=== PATIENT | male | born 1980 | race Caucasian/White ===

== ENCOUNTER → 2017-11-18 10:23 | Day surgery (SDC) | payer OTHER ==
[~2017-11-18 10:23] MED LIST: Buffered Lidocaine 0.9% SYRIN* 5 ML/SYR SYRINGE INTRADERM ONE; Buffered Lidocaine 0.9% SYRIN* 5 ML/SYR SYRINGE ONE; Bupivacaine 0.25% SDV* 30 ML ONE; Dexamethasone IV* 4 MG/ML 1 ML (4 MG) ONE; HYDROcodone/ACETAMIN 5-325 MG* 1 TAB ONE; Ketorolac INJ* 30 MG/ML 1 ML VIAL ONE; Lidocaine 1% MPF wEPI 200,000* 30 ML SDV ONE; Lidocaine 2% PF * 5 ML VIAL ONE; Naloxone* 0.4 MG/ML 1 ML VIAL IV PRN; Ondansetron INJ* 2 MG/ML VIAL IV PRN; Ondansetron INJ* 2 MG/ML VIAL ONE; Propofol* 10 MG/ML 20 ML BTL IV PUSH ONE; Sodium Citrate/Citric Acid* 15 ML UDC ONE; Sodium Citrate/Citric Acid* 15 ML UDC PO ONE; ceFAZolin 2 GM PREMIX (*) 2 GM/50 ML BAG IVPB ONE; fentaNYL* 50 MCG/ML 2 ML VIAL (100 MCG VIAL) ONE; fentaNYL* 50 MCG/ML 5 ML VIAL (250 MCG VIAL) ONE
[2017-11-18] MEDS: fentaNYL* 50 MCG/ML 2 ML VIAL (100 MCG VIAL) IV PRN ×3 (14:57→15:14)
[2017-11-18 15:33] VITALS: BP 102/89
--- NOTE | 2017-11-20 12:58 | OP ---
DATE OF OPERATION: 11/18/17 - [facility] DATE OF : 82 SURGEON: Rick Richards MD CUT OFF MAN: ANKITA Olivier. An certified physician's assistant was needed for the entirety of the procedure to aid in positioning of the arm and retraction. ANESTHESIOLOGIST: Dr. Tenorio. ANESTHESIA: General. PRE-OP DIAGNOSES: 1. Right triangular fibrocartilage complex repair with ulnar carpal and ulnar collateral ligament tear. 2. Traumatic disruption of the trapezio-triquetral joint. POST-OP DIAGNOSES: 1. Right triangular fibrocartilage complex repair with ulnar carpal and ulnar collateral ligament tear. 2. Traumatic disruption of the trapezio-triquetral joint. 3. Disruption of the distal flexor carpi ulnaris tendon. PROCEDURE PERFORMED: 1. Right wrist arthroscopy. 2. Right wrist arthroscopic TFCC debridement. 3. Right pisiform excision. 4. Right TFCC repair in the form of ulnar carpal ligament repair and ulnar collateral ligament repair. 5. Debridement of distal FCU tendon disruption or rupture. INDICATIONS: Ton is 36, we have been trying to nurse along the ulnar side of the wrist ever since an injury to the wrist back on 07/18/17, when he fell and a 40- pound box bent the wrist very awkwardly while at work. Since then, we have never been able to get relief of the ulnar-sided wrist pain despite injections and some nonoperative treatment. We talked about risks and benefits and the proposed surgery. He had wanted to proceed. ESTIMATED BLOOD LOSS: 2 mL. COMPLICATIONS: None. FINDINGS: The ulnar collateral ligament was disrupted off of the triquetrum. The ulnocarpal ligaments were disrupted. DESCRIPTION OF PROCEDURE: Ton was seen in the preoperative holding area. The correct site and side of the procedure were identified. We came back to the operating room. The arm was prepped and draped in the usual fashion. A time -out was performed. I began with placing the arm in the Acumed traction tower and appropriate traction was placed. The arm was exsanguinated with the Esmarch and the tourniquet inflated to 250 mmHg. I developed a 3/4 portal in standard fashion with the #11 blade and mosquito and the blunt trocar. The camera was inserted there, the arthroscopy was begun. Radially, everything looked good. As I came ulnar, there was no central or radial-sided TFCC tears. The pre-foveal recess was identified. There was disruption and very thinning and splitting of the ulnocarpal ligaments volarly. I did develop a 6 arch portal and introduced the shaver and debrided back the disruption of the ulnocarpal ligament with the shaver. I then developed midcarpal portals, both radial and ulnar side midcarpal portals. I examined the scapholunate and lunotriquetral articulations, these both looked well apposed and stable. At this point, I decided there was nothing further that I could repair arthroscopically. We left the arm out of the traction tower and prepared for the open portion of procedure. I made a Flavia type incision over the ulnar side of the wrist joint. Full-thickness flaps were raised off the fascia. The pisiform is identified, it was ellipsed out from the remaining fibers of the FCU. The pisiform was circumferentially released from the remaining fibers of the FCU tendon and excised. Distally, the FCU tendon had largely been ruptured off of its insertion on to the base of the 5th metacarpal. The scar tissue adhesions had developed there are debrided back until only the muscular attachments of the FCU tendon remained or the hypothenar muscle originates off the tendon. Once I had the pisiform excised, I was able to dissect down to the ulnocarpal joint and expose the ulnar collateral ligament. This was frankly peeled off and detached from the ulnar side of the triquetrum and the carpus. I went ahead and placed a Micro Mitek suture and went ahead and tried to reapproximate the ulnar collateral ligament back to the triquetrum; however, the 4-0 Ethibond suture was not strong enough, and so I went ahead and placed a mini Mitek suture and then I was able to use a 2-0 suture of that to repair the ulnocarpal ligament back to the triquetrum. I had used a curette and a rongeur to go ahead and create some bleeding bone and prepare the site for healing. At this point, I took 4-0 Ethibond suture and placed multiple nretsp-ub-qsyxw sutures to complete the repair of the ulnar collateral ligament. I then came more proximally and the split in the ulnar carpal ligament was repaired using three xogubh-sq-lmxpo 4-0 Ethibond sutures. At this point, the distal FCU tendon rupture had been debrided. The repair of the ulnar collateral ligament and the ulnar carpal ligaments was complete. Everything was looking good and stable. I went ahead and irrigated out the wound. The split in the remaining FCU tendon was closed up with a couple of 4-0 Ethibond sutures. Skin was closed with 4-0 nylon sutures. 0.25% Marcaine was infiltrated into the operative area. The wounds are dressed with Xeroform, 4x4, sterile Webril and a sugar-tong splint with the wrist in neutral flexion. Slight ulnar deviation was applied. Tourniquet was deflated and the hand pinked up immediately. He was woken up and taken to the recovery room in stable condition. [id number]/[facility] #: [id number] CASSIDY
== END | disposition home or self-care (01) ==
LOC: OR 10:23
PROVIDERS: ATTEND Orthopaedic Surgery Hand Surgery
DX: S63.591D Other specified sprain of right wrist, subsequent encounter (principal); S63.31 Traumatic rupture of collateral ligament of wrist; W19.XXXD Unspecified fall, subsequent encounter; F41.8 Other specified anxiety disorders; Y92.89 Other specified places as the place of occurrence of the external cause; Z87.891 Personal history of nicotine dependence; K21.9 Gastro-esophageal reflux disease without esophagitis
CPT/HCPCS: 88304; 88311; A9270-GY; C1713; J0690; J1100; J1885; J2001; J2405; J2704; J3010

== ENCOUNTER 2018-03-19 23:02 | Emergency (ER) | payer OTHER ==
[2018-03-19 23:08] VITALS: BP 124/76
--- OUTSIDE RECORDS SUMMARY | 2018-03-19 23:17 | XMS REPORT ---
:1980 External Reference #:[id number] Author Organization [facility] Address [address] [address] Phone [phone] Care Team Providers Name Role Phone Anders Victoria MD Primary Care Physician Unavailable Payers Type Date Identification Numbers Payment Provider Subscriber Commercial Policy Number: [id number] [employer] Ton Contreras Group Number: [id number] [address] PayID: [id number] [place] [address] Medigap Part B Effective: 2011 Policy Number: BS Facets Jessy Contreras [id number] Expires: 2016 PayID: [id number] [address] [address] [place] [address] Medigap Part B Expires: 2011 Policy Number: BS Juan Francisco Contreras [id number] PayID: [id number] [address] [address] [place] [address] Workers Effective: Policy Number: Vega Ton [employer] Compensation 2017 [id number] Patsy Contreras Onset: 2017 Group Name: (Q) [phone] [address] PayID: TORRES Thomas [id number] Problems Date Description Provider Status Onset: 07/30/2017 Sprain of wrist and/or hand Rick Richards MD Active Family History Date Family Member(s) Problem(s) Comments General No Current Problems Social History Type Date Description Comments Lives With Spouse Occupation [employer] ETOH Use Occasionally consumes alcohol Smoking Patient is a former smoker Exercise Type/Frequency Exercises regularly Allergies, Adverse Reactions, Alerts Date Description Reaction Status Severity Comments 05/09/2011 Benadryl hallucinations active Moderate 11/01/2016 NKDA inactive Medications Medication Date Status Form Strength Qnty SIG Indications Ordering Provider Ibuprofen Active prn pain Unknown /0000 Hydrocodone-Ac 11/17 Hx Tablets 5-325mg 60tab 1 or 2 tabs by Maryse etamin s mouth every 6-8 Cain, - hours as needed M.D. 11/29 for pain No Active 11/01 Hx Unknown Medications /2015 - 11/17 Ibuprofen 03/17 Hx Tablets 600mg 90tab tid s Endo, - M.D. 07/12 Gabapentin 03/17 Hx Capsules 100mg 240ca 1 po qhs to ps start and march Endo, - increase as M.D. 07/12 tolerated to po qhs then 1 po qam and 2 po hs, gradually up to 3 tid prn pain Tramadol HCL 01/07 Hx Tablets 50mg 120ta 100 MG bid prn bs Endo, - M.D. 07/12 Methotrexate 01/07 Hx Tablets 2.5mg 30tab 6 tabs each s Saturday Endo, - M.D. 03/17 Folic Acid 01/07 Hx Tablets 1mg 90tab 1 po qd s Endo, - M.D. 07/12 Enbrel PFS 08/29 Hx Solution 50mg/ml 4unit 1 s subcutaneously Endo, - once weekly M.D. 07/12 Nabumetone 08/14 Hx Tablets 750mg 60tab 1 po bid s Endo, - M.D. 03/17 Indomethacin 05/09 Hx Capsules 25mg 120ca 2 po bid ps Endo, - M.D. 08/14 Amitriptyline Hx Tablets 50mg 30tab 1 po qhs Unknown HCL / s - 03/17 Prilosec Hx Capsules 40mg 30cap 1 po bid Unknown /0000 DR brito - 07/12 Sucralfate Hx Tablets 1gm 90tab take 1 qid Unknown /0000 s - 07/12 Vital Signs Date Vital Result Comment 02/18/2018 Height 74.5 inches 6'2.50" Heart Rate 68 /min BP Systolic 120 mmHg BP Diastolic 62 mmHg Respiratory Rate 12 /min Body Temperature 96.9 F Pain Level 2 01/31/2018 Height 74.5 inches 6'2.50" Heart Rate 67 /min BP Systolic 102 mmHg BP Diastolic 62 mmHg Respiratory Rate 16 /min Body Temperature 97.0 F Pain Level 2 01/08/2018 Height 74.5 inches 6'2.50" Weight 220.00 lb Heart Rate 64 /min BP Systolic Sitting 112 mmHg LA lg cuff BP Diastolic Sitting 68 mmHg LA lg cuff Pain Level 0 BMI (Body Mass Index) 27.9 kg/m2 12/20/2017 Height 74.5 inches 6'2.50" Weight 215.00 lb per pt Heart Rate 62 /min Respiratory Rate 16 /min Pain Level 0 BMI (Body Mass Index) 27.2 kg/m2 11/29/2017 Height 74.5 inches 6'2.50" Weight 219.00 lb Heart Rate 77 /min Respiratory Rate 14 /min Body Temperature 97.3 F Pain Level 3 BMI (Body Mass Index) 27.7 kg/m2 11/12/2017 Height 74.5 inches 6'2.50" Weight 219.00 lb Heart Rate 61 /min BP Systolic 116 mmHg BP Diastolic 65 mmHg Body Temperature 96.9 F BMI (Body Mass Index) 27.7 kg/m2 09/20/2017 Height 74 inches 6'2" Weight 210.00 lb BP Systolic 108 mmHg BP Diastolic 66 mmHg Respiratory Rate 14 /min Body Temperature 98.3 F Pain Level 4 BMI (Body Mass Index) 27.0 kg/m2 08/27/2017 Height 74 inches 6'2" Weight 210.00 lb Heart Rate 76 /min BP Systolic 124 mmHg BP Diastolic 82 mmHg Body Temperature 98.2 F Pain Level 3 BMI (Body Mass Index) 27.0 kg/m2 07/30/2017 Height 74 inches 6'2" Weight 210.00 lb Heart Rate 70 /min BP Systolic 127 mmHg BP Diastolic 77 mmHg Respiratory Rate 16 /min BMI (Body Mass Index) 27.0 kg/m2 11/22/2016 Height 74 inches 6'2" Weight 235.00 lb Respiratory Rate 19 /min Pain Level 3 BMI (Body Mass Index) 30.2 kg/m2 11/01/2016 Height 74 inches 6'2" Weight 235.00 lb Respiratory Rate 21 /min Pain Level 4 BMI (Body Mass Index) 30.2 kg/m2 03/17/2012 Height 74 inches 6'2" Weight 226.00 lb Heart Rate 78 /min BP Systolic Sitting 120 mmHg BP Diastolic Sitting 71 mmHg BMI (Body Mass Index) 29.0 kg/m2 01/07/2012 Height 74 inches 6'2" Weight 227.00 lb Heart Rate 80 /min BP Systolic Sitting 126 mmHg BP Diastolic Sitting 70 mmHg BMI (Body Mass Index) 29.1 kg/m2 10/29/2011 Height 74 inches 6'2" Weight 230.00 lb Heart Rate 83 /min BP Systolic Sitting 127 mmHg BP Diastolic Sitting 71 mmHg BMI (Body Mass Index) 29.5 kg/m2 09/14/2011 Height 74 inches 6'2" Weight 210.00 lb Heart Rate 72 /min BP Systolic Sitting 122 mmHg BP Diastolic Sitting 78 mmHg BMI (Body Mass Index) 27.0 kg/m2 08/14/2011 Height 74 inches 6'2" Weight 212.00 lb BP Systolic 120 mmHg BP Diastolic 80 mmHg BMI (Body Mass Index) 27.2 kg/m2 05/09/2011 Height 74 inches 6'2" Weight 214.00 lb Heart Rate 74 /min BP Systolic 130 mmHg BP Diastolic 74 mmHg BMI (Body Mass Index) 27.5 kg/m2 Results Test Date Test Result H/L Range Note Laboratory test 11/18/2017 Surgical Pathology SEE RESULT BELOW 1 finding Xray 11/23/2016 Elbow Left 3+VWS <pending> 1 SEE RESULT BELOW Name: TON CONTRERAS II : [address]: Rick Richards MD Acct: [id number] Unit: [id number] AGE: 36 Location: OR Re11/18/17 SEX: M Status: REG SDC SPEC: [id number] NETTIE: 11/18/17-1406 [facility] [address]: Rick Richards MD REQ: [id number] RECD: 11/18/17 STATUS: SOUT _ ORDERED: Decal, LEVEL 3 FINAL DIAGNOSIS Bone and cartilage, right wrist, arthroplasty: -- Severe degenerative osteoarthritic changes. PRE-OPERATIVE DIAGNOSIS Other specified sprain of right wrist GROSS DESCRIPTION The specimen is received in formalin labeled, Pisiform Right Wrist, and consists of a 1.7 x 1.1 x 1.1 cm crum-pink irregular bone fragment with scant adherent crum-pink soft tissue. Punch Operator sections, one cassette following decalcification. MICROSCOPIC DESCRIPTION . Signed (signature on file) Jairo Martinez MD 1524 END OF REPORT * ML=Testing performed at Main Lab DEPARTMENT OF PATHOLOGY, [address] [place] [address] Jairo Martinez M.D. Director [facility] # [id number] Procedures Date CPT Code Description Status 01/08/2018 24626 Long Arm Splint Application Completed 12/20/2017 71291 Long Arm Cast Application Completed 11/29/201772343 Long Arm Cast Application Completed 11/18/2017 10506 Carpectomy One Bone Completed 11/18/2017 44787 Carpectomy One Bone Completed 11/18/2017 16621 Arthrotomy Distal Radioulnar JT W/Repair Triangular Completed Cartilage 11/18/2017 10835 Arthrotomy Distal Radioulnar JT W/Repair Triangular Completed Cartilage 11/18/2017 95376 Arthroscopy Wrist Excision/Repair Triang Completed Fibrocartilage/Debride 11/18/2017 21580 Carpectomy One Bone Completed 11/18/2017 91128 Arthrotomy Distal Radioulnar JT W/Repair Triangular Completed Cartilage Encounters Type Date Location Provider CPT E/M Dx Office Visit 09/20/2017 [place] [address] S63.591D 9:30a Of [facility] Office Visit 08/27/2017 [place] [address] S63.591D 2:45p [facility] Office Visit 07/30/2017 [place] [address] S63.591A 2:45p Of [facility]AJose Office Visit 11/22/2016 [facility] Le[facility] Crawford 15742 S52.135D 3:00p Of Suman CALDERÓN M25.522 Office Visit 11/01/2016 2:30p [facility] Of Leopoldo Cespedes 42348 M25.522 Suman Crawford MD Office Visit 04/03/2012 8:15a [facility] Of Ian Schroeder 34754 727.04 Suman Soares Office Visit 03/17/2012 9:00a [facility] A[facility] 03245 720.0 Of Shruthi Soares 721.3 338.4 V58.69 Office Visit 01/07/2012 9:40a [facility] Services [facility] Ayon M.D. 54624 720.0 Of [facility] V58.69 Office Visit 10/29/2011 3:40p Rhe[facility]ology Services Ascencion Ayon M.D. 73926 720.0 Of [facility] V58.69 Office Visit 09/14/2011 9:00a [facility]ology Services Of Nurse Visit 18220 720.0 [facility] V58.69 Office Visit 08/14/2011 1:40p [facility] Services [facility] Ayon M.D. 89640 720.0 Of [facility] V58.69 535.50 Office Visit 05/09/2011 2:40p [facility] Services [facility] A[facility] 41810 715.89 Of Shruthi Soares 721.90 Plan of Care Future Appointment(s):04/02/2018 10:15 am - Rick Richards MD at [facility]
[2018-03-19] MEDS ORDERED: Lidocaine 2% VISCOUS* 15 ML UDC PO ONE (23:35)
--- NOTE | 2018-03-19 23:39 | ED ---
Respiratory - HPI Summary HPI Summary: Complains of sore throat, left ear pain starting yesterday. Denies fever, cough , RECINOS, facial pressure, nasal discharge, rash, CP, SOB, N/V/D, abdominal pain, change in urine or BM. Medical history is none. Pain with swallowing, but able to tolerate fluids - History of Current Complaint Chief Complaint: EDThroatPain Stated Complaint: SORE THROAT/LT EAR PAIN Time Seen by Provider: 03/19/18 23:29 Hx Obtained From: Patient Onset/Duration: Gradual Onset Timing: Constant Initial Severity: Moderate Current Severity: Moderate Pain Intensity: 5 Sputum Amount: None - Allergy/Home Medications Allergies/Adverse Reactions: Allergies Allergy/AdvReac Type Severity Reaction Status Date / Time diphenhydramine Allergy Hives Verified 03/19/18 23:05 [From Benadryl] PMH/Surg Hx/FS Hx/Imm Hx Endocrine/Hematology History: Denies: Hx Diabetes Cardiovascular History: Denies: Hx Hypertension, Hx Pacemaker/ICD History: Denies: Hx Renal Disease Sensory History: Denies: Hx Contacts or Glasses, Hx Hearing Aid Opthamlomology History: Denies: Hx Contacts or Glasses Psychiatric History: Reports: Hx Anxiety, Hx Panic Disorder - Cancer History Hx Chemotherapy: No - Surgical History Surgery Procedure, Year, and Place: ORAL SURGERY had wisdom teeth and a couple others removed Hx Anesthesia Reactions: No Infectious Disease History: No Infectious Disease History: Reports: Hx Hepatitis Denies: Hx Clostridium Difficile, Hx Human Immunodeficiency Virus (HIV), Hx of Known/Suspected MRSA, Hx Shingles, Hx Tuberculosis, Hx Known/Suspected VRE, Hx Known/Suspected VRSA, History Other Infectious Disease, Traveled Outside the [place] in Last 30 Days - Family History Known Family History: Negative: Cardiac Disease, Hypertension, Diabetes - Social History Alcohol Use: Rare Substance Use Type: Reports: Marijuana Substance Use Comment - Amount & Last Used: occassionally Smoking Status (MU): Former Smoker Amount Used/How Often: smoked for 8 years 1.5ppd Review of Systems Constitutional: Negative Eyes: Negative Positive: Sore Throat, Ear Ache Cardiovascular: Negative Respiratory: Negative Gastrointestinal: Negative Genitourinary: Negative Musculoskeletal: Negative Skin: Negative Neurological: Negative Psychological: Normal All Other Systems Reviewed And Are Negative: Yes Physical Exam Triage Information Reviewed: Yes Vital Signs On Initial Exam: Initial Vitals Temp Pulse Resp BP Pulse Ox 97.4 F 67 20 124/76 98 03/19/18 23:04 03/19/18 23:04 03/19/18 23:04 03/19/18 23:04 03/19/18 23:04 Vital Signs Reviewed: Yes Appearance: Positive: Well-Appearing Skin: Positive: Warm Head/Face: Positive: Normal Head/Face Inspection Eyes: Positive: Normal ENT: Positive: Pharyngeal erythema, TMs normal, Tonsillar exudate, Uvula midline. Negative: Trismus, Muffled voice, Hoarse voice, Sinus tenderness Neck: Positive: Supple Respiratory/Lung Sounds: Positive: Clear to Auscultation Cardiovascular: Positive: Normal Abdomen Description: Positive: Nontender Musculoskeletal: Positive: Normal Neurological: Positive: Normal Psychiatric: Positive: Normal AVPU Assessment: Alert - Nicholson Coma Scale Best Eye Response: 4 - Spontaneous Best Motor Response: 6 - Obeys Commands Best Verbal Response: 5 - Oriented Coma Scale Total: 15 Diagnostics - Vital Signs Vital Signs Temp Pulse Resp BP Pulse Ox 03/19/18 23:04 97.4 F 67 20 124/76 98 - Laboratory Lab Statement: Any lab studies that have been ordered have been reviewed, and results considered in the medical decision making process. Disposition - Course Course Of Treatment: Positives for strep throat. Amoxicillin and lidocaine - Diagnoses Provider Diagnoses: Strep pharyngitis Discharge - Sign-Out/Discharge Documenting (check all that apply): Discharge/Admit/Transfer - Discharge Plan Condition: Stable Disposition: HOME Patient Education Materials: Strep Throat (ED) Referrals: Anders Victoria MD [Primary Care Provider] - Additional Instructions: Follow-up with primary care. Return to the ED for any new or worsening symptoms - Billing Disposition and Condition Condition: STABLE Disposition: HOME
[2018-03-20] MEDS ORDERED: Amoxicillin PO (*) 500 MG CAP PO ONE (00:29)
== END 2018-03-20 00:48 | disposition home or self-care (01) ==
LOC: ED 23:02
DX: J02.0 Streptococcal pharyngitis (principal); Z88.8 Allergy status to other drugs, medicaments and biological substances; F41.0 Panic disorder [episodic paroxysmal anxiety]; Z87.891 Personal history of nicotine dependence
CPT/HCPCS: 87651; 99282; A9270-GY

== ENCOUNTER 2018-04-24 08:44 | Day surgery (SDC) | payer OTHER ==
[~2018-04-24 08:44] MED LIST changes: -Buffered Lidocaine 0.9% SYRIN* 5 ML/SYR SYRINGE ONE; -Bupivacaine 0.25% SDV* 30 ML ONE; -Dexamethasone IV* 4 MG/ML 1 ML (4 MG) ONE; -HYDROcodone/ACETAMIN 5-325 MG* 1 TAB ONE; -Ketorolac INJ* 30 MG/ML 1 ML VIAL ONE; -Lidocaine 1% MPF wEPI 200,000* 30 ML SDV ONE; -Lidocaine 2% PF * 5 ML VIAL ONE; -Naloxone* 0.4 MG/ML 1 ML VIAL IV PRN; -Ondansetron INJ* 2 MG/ML VIAL IV PRN; -Ondansetron INJ* 2 MG/ML VIAL ONE; -Propofol* 10 MG/ML 20 ML BTL IV PUSH ONE; -Sodium Citrate/Citric Acid* 15 ML UDC ONE; -Sodium Citrate/Citric Acid* 15 ML UDC PO ONE; -ceFAZolin 2 GM PREMIX (*) 2 GM/50 ML BAG IVPB ONE; -fentaNYL* 50 MCG/ML 2 ML VIAL (100 MCG VIAL) ONE; -fentaNYL* 50 MCG/ML 5 ML VIAL (250 MCG VIAL) ONE
[2018-04-24] MEDS ORDERED: ceFAZolin 2 GM PREMIX (*) 2 GM/50 ML BAG IVPB ONE (09:02)
[2018-04-24] MEDS ORDERED: fentaNYL* 50 MCG/ML 2 ML VIAL (100 MCG VIAL) ONE (09:47)
[2018-04-24] MEDS ORDERED: Midazolam* 1 MG/ML 5 ML VIAL (5 MG) ONE (09:47)
[2018-04-24] MEDS ORDERED: Propofol* 10 MG/ML 20 ML BTL IV PUSH ONE ×2 (09:47→10:55)
[2018-04-24] MEDS ORDERED: Bupivacaine 0.25% SDV* 30 ML ONE (09:54)
[2018-04-24] MEDS ORDERED: Dexamethasone IV* 4 MG/ML 1 ML (4 MG) ONE (10:37)
[2018-04-24] MEDS ORDERED: Ketorolac INJ* 30 MG/ML 1 ML VIAL ONE (11:28)
[2018-04-24] MEDS ORDERED: fentaNYL* 50 MCG/ML 2 ML VIAL (100 MCG VIAL) IV PRN (11:36)
[2018-04-24] MEDS ORDERED: Ondansetron ODT TAB* 4 MG PO PRN (11:36)
[2018-04-24] MEDS ORDERED: Ondansetron INJ* 2 MG/ML VIAL IV PRN (11:36)
[2018-04-24] MEDS ORDERED: Naloxone* 0.4 MG/ML 1 ML VIAL IV PRN (11:36)
[2018-04-24] MEDS ORDERED: HYDROcodone/ACETAMIN 5-325 MG* 1 TAB PO PRN (11:36)
[2018-04-24] MEDS ORDERED: oxyCODONE TAB* 5 MG TAB PO PRN (11:36)
[2018-04-24 12:17] VITALS: BP 109/64
--- NOTE | 2018-04-24 22:17 | OP ---
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 An assistant associate full professor was needed for the procedure to aid in positioning of the arm and retraction. ANESTHESIOLOGIST: Dr. Chapman. ANESTHESIA: General. PRE-OP DIAGNOSIS: Right wrist ulnar nerve compression at the wrist secondary to a very densely thick distal FCU tendon stump, status post prior surgery. POST-OP DIAGNOSIS: Right wrist ulnar nerve compression at the wrist secondary to a very densely thick distal FCU tendon stump, status post prior surgery. OPERATIVE PROCEDURE: 1. Right wrist ulnar nerve decompression. 2. Excision of flexor carpi ulnaris scarred and degenerative tendon stump. ESTIMATED BLOOD LOSS: 2 mL. COMPLICATIONS: None. FINDINGS: Just deep to the very thick dense scarred FCU tendon stump, the ulnar nerve was visibly quite compressed. See above and below. DESCRIPTION OF PROCEDURE: Ton was seen in the preoperative holding area. The correct side, site and procedure were identified. We came back to the operating room. The arm was prepped and draped in the usual fashion. A time- out was performed. I began by exsanguinating the arm with an Esmarch and the tourniquet was inflated to 250 mmHg. I reopened his prior incision. This was extended proximally and distally for exposure. The FCU tendon was freed up proximally. Proximal to all of the scar tissue, the ulnar neurovascular bundle was identified deep to the tendon. I then released the scar tissue around the FCU tendon. What was left to the FCU tendon it from the ulnar neurovascular bundle deep to that. There was a fairly large dense mass of scar tissue. Once this was completely freed up, I trimmed back all the scar tissue leaving what remained of the viable tendon. It was not much. Ultimately what was left was not functional. So, I went ahead and detached the scar tissue distally. I then pulled the tendon down into the wound and excised the tendon sharply proximally allowing the muscle to retract back up into the forearm. I then completed the remainder of neurolysis down through Guyon's canal. He has had a prior pisiform excision. I have traced the nerve down all the way to where it divided into the motor branch and then into the common digital nerve and proper digital nerve. Once I had performed a full neurolysis and cauterized the traversing blood vessels with the bipolar and there was no compression on the nerve and the deep branch then decompressed as well. I irrigated out the wounds. Skin was closed with 4-0 nylon suture. The wrist was dressed with soft dressings. Marking was infiltrated. The patient was then awoken up and taken to the recovery room in stable condition. [id number]/[facility] #: [id number]
== END 2018-04-24 12:35 | disposition home or self-care (01) ==
LOC: OREAST 08:44
PROVIDERS: ATTEND Orthopaedic Surgery Hand Surgery
DX: S63.591D Other specified sprain of right wrist, subsequent encounter (principal); G56.21 Lesion of ulnar nerve, right upper limb; F41.8 Other specified anxiety disorders; K21.9 Gastro-esophageal reflux disease without esophagitis; X58.XXXD Exposure to other specified factors, subsequent encounter
CPT/HCPCS: 88304; J0690; J1100; J1885; J2250; J2704; J3010

== ENCOUNTER → 2019-06-02 21:20 | Emergency (ER) | payer OTHER ==
[~2019-06-02 21:20] MED LIST changes: -Buffered Lidocaine 0.9% SYRIN* 5 ML/SYR SYRINGE INTRADERM ONE; +Penicillin VK TAB* 250 MG PO ONE
--- NOTE | 2019-06-02 22:09 | ED ---
Throat Pain/Nasal Congestion - HPI Summary HPI Summary: 38-year-old male presents with dental pain for the past couple days. He does not currently have a dentist. He states he felt a pop and had some drainage from the tooth. He states he fractured a tooth a while ago. He has been taking ibuprofen for pain which has been helping. No fevers. No chest pain. No shortness of breath. No bowel pain. No nausea vomiting or sore throat. - History of Current Complaint Chief Complaint: EDDentalPain Time Seen by Provider: 06/02/19 21:43 - Allergies/Home Medications Allergies/Adverse Reactions: Allergies Allergy/AdvReac Type Severity Reaction Status Date / Time diphenhydramine Allergy Hives Verified 06/02/19 21:29 [From Ellie] PMH/Surg Hx/FS Hx/Imm Hx Endocrine/Hematology History: Denies: Hx Diabetes Cardiovascular History: Denies: Hx Hypertension, Hx Pacemaker/ICD, Other Cardiovascular Problems/ Disorders Respiratory History: Denies: Other Respiratory Problems/Disorders GI History: Reports: Hx Gastroesophageal Reflux Disease, Hx Hiatal Hernia Denies: Other GI Disorders History: Denies: Hx Renal Disease, Other Problems/Disorders Musculoskeletal History: Denies: Other Musculoskeletal History Sensory History: Denies: Hx Contacts or Glasses, Hx Hearing Aid Opthamlomology History: Denies: Hx Contacts or Glasses Neurological History: Denies: Other Neuro Impairments/Disorders Psychiatric History: Reports: Hx Anxiety Denies: Hx Panic Disorder - Cancer History Hx Chemotherapy: No - Surgical History Surgery Procedure, Year, and Place: ORAL SURGERY had wisdom teeth and a couple others removed. Rt HAND 11/2017 & 04/28 - WORK INJURY - REPAIR TENDONS AND BONE REMOVED Hx Anesthesia Reactions: No Infectious Disease History: No Infectious Disease History: Reports: Hx Hepatitis Denies: Hx Clostridium Difficile, Hx Human Immunodeficiency Virus (HIV), Hx of Known/Suspected MRSA, Hx Shingles, Hx Tuberculosis, Hx Known/Suspected VRE, Hx Known/Suspected VRSA, History Other Infectious Disease, Traveled Outside the [place] in Last 30 Days - Family History Known Family History: Negative: Cardiac Disease, Hypertension, Diabetes - Social History Alcohol Use: Rare Alcohol Amount: 1 per month Substance Use Type: Reports: Marijuana Substance Use Comment - Amount & Last Used: occassionally Smoking Status (MU): Former Smoker Amount Used/How Often: smoked for 8 years 1.5ppd Review of Systems Negative: Fever Positive: Dental Pain Negative: Chest Pain Negative: Shortness Of Breath All Other Systems Reviewed And Are Negative: Yes Physical Exam Triage Information Reviewed: Yes Vital Signs On Initial Exam: Initial Vitals Temp Pulse Resp BP Pulse Ox 97.9 F 73 16 147/95 99 06/02/19 21:26 06/02/19 21:26 06/02/19 21:26 06/02/19 21:26 06/02/19 21:26 Vital Signs Reviewed: Yes Appearance: Positive: Well-Appearing Skin: Positive: Warm, Dry Head/Face: Positive: Normal Head/Face Inspection Eyes: Positive: Normal, Conjunctiva Clear ENT: Positive: Pharynx normal Dental: Positive: Other - tenderness lower jaw left, fracture tooth with some drainage present Neck: Positive: Supple, Nontender, No Lymphadenopathy Respiratory/Lung Sounds: Positive: Clear to Auscultation, Breath Sounds Present Cardiovascular: Positive: Normal, RRR Musculoskeletal: Positive: Normal Neurological: Positive: Normal Psychiatric: Positive: Normal Diagnostics - Vital Signs Vital Signs Temp Pulse Resp BP Pulse Ox 06/02/19 21:26 97.9 F 73 16 147/95 99 - Laboratory Lab Statement: Any lab studies that have been ordered have been reviewed, and results considered in the medical decision making process. EENT Course/Dx - Course Course Of Treatment: 38-year-old male presents with dental pain for the past couple days. He does not currently have a dentist. He states he felt a pop and had some drainage from the tooth. He states he fractured a tooth a while ago. He has been taking ibuprofen for pain which has been helping. No fevers. No chest pain. No shortness of breath. No bowel pain. No nausea vomiting or sore throat. On exam has fractured tooth on left lower jaw. Some drainage noted. Will treat with penicillin. told follow up with dentist. Patient understands agrees with plan. - Differential Diagnoses Differential Diagnoses: Dental Abscess, Dental Caries, Fractured Tooth - Diagnoses Provider Diagnoses: Dental infection Discharge - Sign-Out/Discharge Documenting (check all that apply): Patient Departure Patient Received Moderate/Deep Sedation with Procedure: No - Discharge Plan Condition: Good Disposition: HOME Prescriptions: Penicillin VK TAB* [Penicillin VK 250 mg Tab*] 500 mg PO QID #27 tab Patient Education Materials: Dental Abscess (ED) Referrals: Anders Victoria MD [Primary Care Provider] - Additional Instructions: Take antibiotics: 4 times a day for 7 days, first dose given in ED Use tyenlol or ibuprofen every 6 hours Avoid hard, crunchy food until seen by dentist Follow up with dentist as soon as possible Return to ED if develop fever, shortness of breath, pain with eye movement or swelling around eye - Billing Disposition and Condition Condition: GOOD Disposition: Home
[2019-06-02 22:35] VITALS: BP 122/69
== END | disposition home or self-care (01) ==
LOC: ED 21:20
DX: K04.7 Periapical abscess without sinus (principal); Z88.8 Allergy status to other drugs, medicaments and biological substances; Z87.891 Personal history of nicotine dependence
CPT/HCPCS: 99282; A9270-GY

== ENCOUNTER 2019-06-16 07:12 | Emergency (ER) | payer OTHER ==
[2019-06-16 07:23] VITALS: BP 133/77
[2019-06-16] MEDS ORDERED: Fluorescein Sodium TOPICAL* 1 MG TEST STRIP OPHTHALMIC ONE (07:30)
[2019-06-16] MEDS ORDERED: Tetracaine 0.5% OPTH.SOL 4 ML* 1 DROP BTL LEFT EYE ONE (07:30)
--- NOTE | 2019-06-16 07:35 | UC ---
Eye Complaint HPI - HPI Summary HPI Summary: 2 DAYS OF LEFT EYE FOREIGN BODY SENSATION AFTER WEED WHACKING. THIS MORNING HAD SOME GREEN CRUST. NO VISUAL DISTURBANCES. - History of Current Complaint Chief Complaint: UCEye Stated Complaint: LT EYE INJURY Time Seen by Provider: 06/16/19 07:18 Hx Obtained From: Patient Onset/Duration: Sudden Onset, Lasting Days, Still Present Timing: Constant Severity Initially: Moderate Severity Currently: Moderate Pain Intensity: 3 Pain Scale Used: 0-10 Numeric Character: Foreign Body Sensation Aggravating Factor(s): Blinking Alleviating Factor(s): Nothing - Allergies/Home Medications Allergies/Adverse Reactions: Allergies Allergy/AdvReac Type Severity Reaction Status Date / Time diphenhydramine Allergy Hives Verified 06/16/19 07:23 [From Benadjayl] PMH/Surg Hx/FS Hx/Imm Hx Previously Healthy: Yes - Surgical History Surgical History: Yes Surgery Procedure, Year, and Place: ORAL SURGERY had wisdom teeth and a couple others removed. Rt HAND 11/2017 & 04/28 - WORK INJURY - REPAIR TENDONS AND BONE REMOVED - Family History Known Family History: Negative: Cardiac Disease, Hypertension, Diabetes - Social History Alcohol Use: Weekly Alcohol Amount: 1 per month Substance Use Type: None Substance Use Comment - Amount & Last Used: occassionally Smoking Status (MU): Former Smoker Amount Used/How Often: smoked for 8 years 1.5ppd When Did the Patient Quit Smoking/Using Tobacco: 13 years ago - Immunization History Most Recent Tetanus Shot: 2011 Review of Systems All Other Systems Reviewed And Are Negative: Yes Constitutional: Positive: Negative Eyes: Positive: Drainage, Other - FB SENSATION Respiratory: Positive: Negative Cardiovascular: Positive: Negative Gastrointestinal: Positive: Negative Physical Exam Triage Information Reviewed: Yes Appearance: Well-Appearing, No Pain Distress, Well-Nourished Vital Signs: Initial Vital Signs Temp 97.3 F 06/16/19 07:19 Pulse 71 06/16/19 07:19 Resp 18 06/16/19 07:19 BP 133/77 06/16/19 07:19 Pulse Ox 100 06/16/19 07:19 Vital Signs Reviewed: Yes Eyes: Positive: Conjunctiva Clear, Other: - PERRL, EOMI. NO FLUORESCEIN UPTAKE. Negative: Discharge ENT: Positive: Hearing grossly normal Neck: Positive: Supple Respiratory: Positive: No respiratory distress, No accessory muscle use Cardiovascular: Positive: Pulses Normal Abdomen Description: Positive: Soft Musculoskeletal: Positive: No Edema Neurological: Positive: Alert Psychological: Positive: Age Appropriate Behavior Skin: Negative: Rashes Eye Complaint Course/Dx - Course Course Of Treatment: NO FOREIGN BODY OR CORNEAL ABRASION SEEN ON EXAM TODAY. PATIENT MAY HAVE DEVELOPED A CONJUNCTIVITIS. WILL COVER WITH ANTIBIOTIC EYEDROPS. ADVISED PATIENT TO FOLLOW-UP WITH HIS EYE DOCTOR IF HE IS NOT IMPROVING WITH THIS TREATMENT OVER THE NEXT COUPLE OF DAYS. - Differential Dx/Diagnosis Provider Diagnosis: Conjunctivitis, left eye Discharge - Sign-Out/Discharge Documenting (check all that apply): Patient Departure All imaging exams completed and their final reports reviewed: No Studies - Discharge Plan Condition: Stable Disposition: HOME Prescriptions: Ciprofloxacin 0.3% OPTH.MATTI* [Cipro 0.3% Opth*] 1 drop LEFT EYE Q4H #1 btl Patient Education Materials: Conjunctivitis (ED) Referrals: Anders Victoria MD [Primary Care Provider] - If Needed Additional Instructions: NO FOREIGN BODY OR CORNEAL ABRASION SEEN ON EXAM TODAY. WILL COVER FOR CONJUNCTIVITIS WITH ANTIBIOTIC EYEDROPS. FOLLOW-UP WITH YOUR EYE DOCTOR THIS WEEK IF YOU DEVELOP WORSENING PAIN, PERSISTENT FOREIGN BODY SENSATION, PURULENT DRAINAGE, SENSITIVITY TO LIGHT, FEVER, VISUAL DISTURBANCE OR ANY OTHER CONCERNING SYMPTOMS. - Billing Disposition and Condition Condition: STABLE Disposition: Home
== END 2019-06-16 08:06 | disposition home or self-care (01) ==
LOC: UCEAST 07:12
DX: H10.9 Unspecified conjunctivitis (principal); Z87.891 Personal history of nicotine dependence
CPT/HCPCS: 99212; A9270-GY; G0463

== ENCOUNTER 2019-07-22 17:23 | Emergency (ER) | payer OTHER ==
--- OUTSIDE RECORDS SUMMARY | 2019-07-22 17:31 | XMS REPORT | Summary of Care ---
:1980 [address] [facility] Address [address] [place] [address] Care Team Providers Name Role Phone None, [place] Primary Care Provider Unavailable Reason for Visit Reason Comments Derm Problem c/o bilateral groin jock itch. Had athelets foot on right foot, thinks has spread. Tried OTC antifungal cream on groin x2 days, did not help at all. Denies rash, just itching. Orders (lab And Procedure) Requesting STD testing. Denies burning with urination. Encounter Details Date Type Department Care Team Description 07/18/2019 Office Visit Whitney Senait Medley, Itchy scrotum ( Primary Dx); Practice [facility] Screen for STD (sexually transmitted disease) [address] [facility] [address] [place] [address] [place] [address] [phone] Allergies Active Allergy Reactions Severity Noted Date Comments Benadryl Allergy Hives 07/14/2019 documented as of this encounter (statuses as of 07/18/2019) Medications Medication Sig Dispensed Refills Start Date End Date Status lurasidone HCL (LATUDA) Take 1 Tab by 60 Tab 0 07/14/2019 Active 20 MG Oral mouth TabIndications: Bipolar DIRECTED. Go to 2 2 disorder, major tabs a day after depressive episode 1 week (HCC) documented as of this encounter (statuses as of 07/18/2019) Active Problems No known active problemsdocumented as of this encounter (statuses as of 2018) Immunizations Name Administration Dates Next Due Influenza (IM) Preservative Free 07/14/2019 documented as of this encounter Social History Tobacco Use Types Packs/Day Years Used Date Former Smoker Smokeless Tobacco: Current User Comments: quit 14 years ago Alcohol Use Drinks/Week oz/Week Comments Yes 4 beers a month Sex Assigned at Date Recorded Not on file Job Start Date Occupation Industry Not on file Not on file Not on file Travel History Travel Start Travel End No recent travel history available. documented as of this encounter Last Filed Vital Signs Vital Sign Reading Time Taken Comments Blood Pressure 134/80 07/18/2019 11:09 AM EDT Pulse 70 07/18/2019 11:09 AM EDT Temperature - - Respiratory Rate 18 07/18/2019 11:09 AM EDT Oxygen Saturation - - Inhaled Oxygen Concentration - - Weight 84.8 kg (187 lb) 07/18/2019 11:09 AM EDT Height 188 cm (6' 2") 07/18/2019 11:09 AM EDT Body Mass Index 24.01 07/18/2019 11:09 AM EDT documented in this encounter Patient Instructions Patient InstructionsDoSenait etienne PA-C - 07/18/2019 11:40 AM EDT1. Continue using OTC antifungal cream daily x 1 week Wash area with soap for sensitive skin 2. Ordered RP and gonorrhea/chlamydia testing -- will do now -- will call with results NO intercourse until all results are negative documented in this encounter Progress Notes Senait Medley PA-C - 07/18/2019 11:40 AM EDT PATIENT: Ton Contreras : 1980 DATE OF SERVICE: 07/18/2019 REFERRING PRACTITIONER: Nate PRIMARY CARE PROVIDER: None, [place] CHIEF COMPLAINT: Chief Complaint Patient presents with Derm Problem c/o bilateral groin jock itch. Had athelets foot on right foot, thinks has spread. Tried OTC antifungal cream on groin x2 days, did not help at all. Denies rash, just itching. Orders (lab And Procedure) Requesting STD testing. Denies burning with urination. Subjective HISTORY OF PRESENT ILLNESS: Ton Contreras is a 38-y.o. male who presents with 2 concerns 1. Groin itch x 2 days Tried OTC antifungal cream x 1 day, no improvement No rash, just itching 2. Also requesting STD testing Had unprotected intercourse with another woman 07/13/19, he and are Worried about STDs Saw Dr. Dean 07/14/19, had HIV and hep c testing today Denies penile discharge or lesions Denies fever, chills, nausea, vomiting, diarrhea, chest pains, SOB No past medical history on file. Past Surgical History: Procedure Laterality Date RI INCISE WRIST/FOREARM TENDON Family History Problem Relation Age of Onset Lung Cancer Mother mets Breast Cancer Maternal Grandmother Lung Cancer Maternal Grandfather Current Outpatient Medications Medication Sig lurasidone HCL (LATUDA) 20 MG Oral Tab Take 1 Tab by mouth DIRECTED. Go to 2 tabs a day after 1 week No current facility-administered medications for this visit. Allergies Allergen Reactions Benadryl Allergy Hives Social History Socioeconomic History Marital status: Single Spouse name: Not on file Number of children: Not on file Years of education: Not on file Highest education level: Not on file Occupational History Not on file Social Needs Financial resource strain: Not on file Food insecurity: Worry: Not on file Inability: Not on file Transportation needs: Medical: Not on file Non-medical: Not on file Tobacco Use Smoking status: Former Smoker Smokeless tobacco: Current User Tobacco comment: quit 14 years ago Substance and Sexual Activity Alcohol use: Yes Comment: 4 beers a month Drug use: Yes Types: Marijuana Sexual activity: Yes Partners: Female Lifestyle Physical activity: Days per week: Not on file Minutes per session: Not on file Stress: Not on file Relationships Social connections: Talks on phone: Not on file Gets together: Not on file Attends jewish service: Not on file Active member of club or organization: Not on file Attends meetings of clubs or organizations: Not on file Relationship status: Not on file Intimate partner violence: Fear of current or ex partner: Not on file Emotionally abused: Not on file Physically abused: Not on file Forced sexual activity: Not on file Other Topics Concern Not on file Social History Narrative 2 children Works at [employer] REVIEW OF SYSTEMS: Skin: itching bilateral groin -- no rash Eyes: negative visual blurring Ears/Nose/Throat: negative rhinorrhea, sore throat, sinus pressure, post nasal drip Respiratory: negative cough Cardiovascular: negative chest pain Gastrointestinal: negative abdominal pain, constipation, diarrhea, nausea or vomiting Genitourinary: negative burning on urination, dysuria Musculoskeletal: negative arthritis/joint pain Neurologic: negative numbness or tingling of feet or hands Psychiatric: positive bipolar Hematologic/Lymphatic/Immunologic: negative allergies Endocrine: negative diabetes or hot flashes/sweats Objective PHYSICAL EXAMINATION: VITALS: BP 134/80 (BP Location: Right arm, Patient Position: Sitting) | Pulse 70 | Resp 18 | Ht 6' 2" (1.88 m) | Wt 187 lb (84.8 kg) | BMI 24.01 kg/m Body mass index is 24.01 kg/m. General appearance - alert, mild distress, cooperative, oriented times 3 Skin - bilateral groin: no rash or lesions. Pruritic Head - Normocephalic. No masses, lesions, tenderness or abnormalities Eyes - conjunctivae/corneas clear. PERRL, EOM's intact. Lungs - Good diaphragmatic excursion. Lungs clear. Chest symmetrical. Normal breath sounds. Heart - RRR. No murmurs, clicks or gallops. No peripheral edema. . IMPRESSION: ICD-9-CM ICD-10-CM 1. Itchy scrotum 698.1 L29.1 2. Screen for STD (sexually transmitted disease) V74.5 Z11.3 RPR GC/CHLAMYDIA PCR ASSAY RPR Plan PLAN: 1. Continue using OTC antifungal cream 2 x daily x 1 week Wash area with soap for sensitive skin 2. Ordered RP and gonorrhea/chlamydia testing -- will do now -- will call with results NO intercourse until all results are negative Author: Senait Medley PA-C 07/18/2019 11:08 documented in this encounter Plan of Treatment Date Type Specialty Care Team Description 08/04/2019 Office Visit Family [facility] Kar Dean DO [facility] [place] [address] [phone] Name Type Priority Associated Diagnoses Date/Time RPR Lab Routine Screen for STD (sexually transmitted 07/18/2019 11:07 AM EDT disease) Name Type Priority Associated Diagnoses Order Schedule RPR Lab Routine Screen for STD (sexually Expected: 07/18/2019 transmitted disease) (Approximate), Expires: 07/18/2020 GC/CHLAMYDIA PCR Lab Routine Screen for STD (sexually 1 Occurrences starting ASSAY transmitted disease) 07/18/2019 until 01/14/2020 Health Maintenance Due Date Last Done Comments DEPRESSION SCREENING 07/14/2020 07/14/2019, 07/14/2019 HIV SCREENING Completed 01/06/1999 INFLUENZA VACCINE Completed 07/14/2019 HPV IMMUNIZATION SERIES Aged Out No longer eligible based on patient's age to complete this topic MENINGOCOCCAL VACCINE IMM Aged Out No longer eligible based on patient's age to complete this topic PNEUMOCOCCAL 0-64 YRS Aged Out No longer eligible based on patient's age to complete this topic documented as of this encounter Goals Goal Patient Goal Associated Recent Patient-Stated? Author Type Problems Progress Depression Depression 22 No Kar Dean screen (PHQ-9) (07/14/2019 DO Nolan total score < 5 4:22 PM EDT) Note: This is an individualized treatment (depression) goal for Ton Contreras: Displayed above is your goal for a depression screening (PHQ-9) score that would indicate good control of your depression. Keep a regular sleep schedule Lifestyle Kar Wallace DO Note: This is an individualized lifestyle goal for Ton Contreras: Please maintain a regular sleep schedule. This may help with some symptoms of depression. Take all prescribed medications as directed Self-management Kar Wallace DO Note: This is an individualized self-management goal for Ton Contreras: Please take all prescribed medications as directed. 1. Do not skip doses. If you cannot afford your medications, talk with your doctor. 2. Use a pill reminder system such as a pill box if needed. Your pharmacist can help you with this. 3. Contact your Pharmacy 5 days before your medication runs out. If you cannot take your medications for any reasons, talk with your doctor. 4. Please bring all of your medication bottles and inhalers (or a list of all your medications/inhalers) with you to every visit. Potential barriers to meeting all of your care plan goals will continue to be addressed on an ongoing basis. documented as of this encounter Results Not on filedocumented in this encounter Visit Diagnoses Diagnosis Itchy scrotum - Primary Pruritus of genital organs Screen for STD (sexually transmitted disease) Screening examination for venereal disease documented in this encounter Insurance Payer Benefit Plan / Subscriber ID Effective Dates Phone Address Type Group [employer] [place]LLER[place] xxxxxxxxxx 2014-Present A[employer]na [facility] documented as of this encounter
--- NOTE | 2019-07-22 18:20 | ED ---
GI/ HPI - HPI Summary HPI Summary: Patient complains of burning with urination times couple days. Denies penile discharge, testicular pain or swelling, abdominal pain, fever, cough, sore throat, CP, SOB, N/3/D, abdominal pain, change in urine, change in BM. Patient states history of unprotected sex. - History of Current Complaint Chief Complaint: EDUrogenitalProblems Time Seen by Provider: 07/22/19 17:51 Stated Complaint: BLADDER INFECTION PER PT Hx Obtained From: Patient Onset/Duration: Started Days Ago Timing: Constant Severity: Moderate Current Severity: Mild Pain Intensity: 1 Pain Characteristics: Burning Associated Signs and Symptoms: Positive: Negative - Allergy/Home Medications Allergies/Adverse Reactions: Allergies Allergy/AdvReac Type Severity Reaction Status Date / Time diphenhydramine Allergy Hives Verified 07/22/19 17:27 [From Benadryl] Home Medications: Home Medications Lurasidone(*) [Latuda] 20 mg PO DAILY 07/22/19 [History Confirmed 07/22/19] PMH/Surg Hx/FS Hx/Imm Hx Endocrine/Hematology History: Denies: Hx Diabetes Cardiovascular History: Denies: Hx Hypertension, Hx Pacemaker/ICD, Other Cardiovascular Problems/ Disorders Respiratory History: Denies: Other Respiratory Problems/Disorders GI History: Reports: Hx Gastroesophageal Reflux Disease, Hx Hiatal Hernia Denies: Other GI Disorders History: Denies: Hx Renal Disease, Other Problems/Disorders Musculoskeletal History: Denies: Other Musculoskeletal History Sensory History: Denies: Hx Contacts or Glasses, Hx Hearing Aid Opthamlomology History: Denies: Hx Contacts or Glasses Neurological History: Denies: Other Neuro Impairments/Disorders Psychiatric History: Reports: Hx Anxiety Denies: Hx Panic Disorder - Cancer History Hx Chemotherapy: No - Surgical History Surgery Procedure, Year, and Place: ORAL SURGERY had wisdom teeth and a couple others removed. Rt HAND 11/2017 & 04/28 - WORK INJURY - REPAIR TENDONS AND BONE REMOVED Hx Anesthesia Reactions: No Infectious Disease History: No Infectious Disease History: Reports: Hx Hepatitis Denies: Hx Clostridium Difficile, Hx Human Immunodeficiency Virus (HIV), Hx of Known/Suspected MRSA, Hx Shingles, Hx Tuberculosis, Hx Known/Suspected VRE, Hx Known/Suspected VRSA, History Other Infectious Disease, Traveled Outside the [place] in Last 30 Days - Family History Known Family History: Negative: Cardiac Disease, Hypertension, Diabetes - Social History Alcohol Use: Occasionally Alcohol Amount: 1 per month Substance Use Type: Reports: Marijuana Substance Use Comment - Amount & Last Used: occassionally Smoking Status (MU): Former Smoker Amount Used/How Often: smoked for 8 years 1.5ppd Review of Systems Constitutional: Negative Eyes: Negative ENT: Negative Cardiovascular: Negative Respiratory: Negative Gastrointestinal: Negative Positive: burning Musculoskeletal: Negative Skin: Negative Neurological: Negative Psychological: Normal All Other Systems Reviewed And Are Negative: Yes Physical Exam Triage Information Reviewed: Yes Vital Signs On Initial Exam: Initial Vitals Temp Pulse Resp BP Pulse Ox 98.2 F 80 16 142/80 99 07/22/19 17:26 07/22/19 17:26 07/22/19 17:26 07/22/19 17:07/22/19 17:26 Vital Signs Reviewed: Yes Appearance: Positive: Well-Appearing Skin: Positive: Warm, Skin Color Reflects Adequate Perfusion Head/Face: Positive: Normal Head/Face Inspection Eyes: Positive: Normal Neck: Positive: Supple Respiratory/Lung Sounds: Positive: Clear to Auscultation Cardiovascular: Positive: Normal Abdomen Description: Positive: Nontender Male Genital Exam: Positive: Normal Genitalia Musculoskeletal: Positive: Normal Neurological: Positive: Normal Psychiatric: Positive: Normal AVPU Assessment: Alert - Yeyo Coma Scale Best Eye Response: 4 - Spontaneous Best Motor Response: 6 - Obeys Commands Best Verbal Response: 5 - Oriented Coma Scale Total: 15 Diagnostics - Vital Signs Vital Signs Temp Pulse Resp BP Pulse Ox 07/22/19 17:26 98.2 F 80 16 142/80 99 - Laboratory Lab Statement: Any lab studies that have been ordered have been reviewed, and results considered in the medical decision making process. GIGU Course/Dx - Course Course Of Treatment: Patient complains of burning with urination times couple days. Denies penile discharge, testicular pain or swelling, abdominal pain, fever, cough, sore throat, CP, SOB, N/3/D, abdominal pain, change in urine, change in BM. Patient states history of unprotected sex. Vital signs within normal limits. Urine negative. GC chlamydia cultures pending. Rocephin 250 mg IM and azithromycin 1000 mg administered here in the ED. - Diagnoses Provider Diagnoses: Urethritis Discharge ED - Sign-Out/Discharge Documenting (check all that apply): Patient Departure Patient Received Moderate/Deep Sedation with Procedure: No - Discharge Plan Condition: Stable Disposition: HOME Patient Education Materials: Nonspecific Urethritis in Men (ED) Referrals: Kar Dean DO [Primary Care Provider] - Additional Instructions: STD cultures are pending. Return to the ED for any new or worsening symptoms. - Billing Disposition and Condition Condition: STABLE Disposition: Home - Attestation Statements Provider Attestation: I was available for consult. This patient was seen by the MOHIT. The patient was not presented to, seen by, or examined by me. Lion Cisse MD
[2019-07-22 19:02] LABS: Urine Appearance Clear; Urine Bilirubin Negative (Negative); Urine Blood Negative (Negative); Urine Color Colorless; Urine Glucose Negative (Negative); Urine Ketones Negative (Negative); Urine Nitrite Negative (Negative); Urine Protein Negative (Negative); Urine Specific Gravity 1.003 (1.010-1.030); Urine Urobilinogen Negative (Negative)
[2019-07-22] MEDS ORDERED: Azithromycin TAB* 250 MG PO ONE (19:03)
[2019-07-22] MEDS ORDERED: Lidocaine 1% MPF ** 5 ML VIAL IM ONE (19:03)
[2019-07-22] MEDS ORDERED: cefTRIAXone VIAL(*) 250 MG VIAL IM ONE (19:03)
[2019-07-22 19:25] VITALS: BP 137/78
[2019-07-23 14:01] LABS: Chlamydia trachomatis NAA Negative (Negative); Neisseria gonorrhoeae (GC) NAA Negative (Negative)
== END 2019-07-22 19:20 | disposition home or self-care (01) ==
LOC: ED 17:23
DX: N34.2 Other urethritis (principal); K21.9 Gastro-esophageal reflux disease without esophagitis; Z87.891 Personal history of nicotine dependence; Z79.899 Other long term (current) drug therapy; Z88.8 Allergy status to other drugs, medicaments and biological substances
CPT/HCPCS: 81003; 87491; 87591; 96372; 99282; A9270-GY; J0696

== ENCOUNTER 2020-02-04 07:02 | Emergency (ER) | payer OTHER ==
--- OUTSIDE RECORDS SUMMARY | 2020-02-04 07:10 | XMS REPORT | Summary of Care ---
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 [place] [address] [place] [address] [phone] Allergies Active Allergy Reactions Severity Noted Date Comments Benadryl Allergy Hives 07/14/2019 documented as of this encounter (statuses as of 01/22/2020) Medications Medication Sig Dispensed Refills Start Date End Date Status ibuprofen (MOTRIN) 600 Take 1 Tab by 60 Tab 2 12/25/2019 Active MG Oral Tab mouth EVERY EIGHT HOURS NEEDED (pain). lurasidone HCL (LATUDA) Take 3 Tabs by 90 Tab 0 01/15/2020 Active 20 MG Oral mouth DAILY. TabIndications: Bipolar 2 disorder, major depressive episode (HCC) ondansetron (ZOFRAN ODT) Take 1 Tab by 20 Tab 0 01/22/2020 Active 4 MG Oral TABLET mouth EVERY DISPERSIBLEIndications: SIX HOURS Viral gastroenteritis NEEDED (nausea). doxycycline (VIBRAMYCIN) Take 1 Tab by 20 Tab 0 01/22/2020 02/01/2020 Active 100 MG Oral mouth TWICE TabIndications: Acute DAILY for 10 maxillary sinusitis, days. recurrence not specified documented as of this encounter (statuses as of 01/22/2020) Active Problems No known active problemsdocumented as of this encounter (statuses as of 2019) Immunizations Name Administration Dates Next Due Influenza (IM) Preservative Free 07/14/2019 documented as of this encounter Social History Tobacco Use Types Packs/Day Years Used Date Former Smoker Smokeless Tobacco: Current User Comments: quit 14 years ago Alcohol Use Drinks/Week oz/Week Comments Not Currently 4 beers a month Sex Assigned at Date Recorded Not on file documented as of this encounter Last Filed Vital Signs Vital Sign Reading Time Taken Comments Blood Pressure 142/72 01/22/2020 8:39 AM EDT Pulse 62 01/22/2020 8:39 AM EDT Temperature 36.8 01/22/2020 8:39 AM EDT C (98.2 F) Respiratory Rate - - Oxygen Saturation 95% 01/22/2020 8:39 AM EDT Inhaled Oxygen Concentration - - Weight 89.8 kg (198 lb) 01/22/2020 8:39 AM EDT Height 188 cm (6' 2") 01/22/2020 8:39 AM EDT Body Mass Index 25.42 01/22/2020 8:39 AM EDT documented in this encounter Patient Instructions Patient InstructionsElisha Sarmiento FNP - 01/22/2020 8:40 AM EDTRest Fluids Steam may help loosen congestion Mucinex thins mucus salt water gargle as needed for sore/scratchy throat Pedialyte , Gator aid or tea with sugar and salt Zofran as needed for nausea, Imodium AD for diarrhea Start Doxycycline when nausea and diarrhea Call if symptoms fail to resolve or worsen documented in this encounter Progress Notes Elisha Sarmiento FNP - 01/22/2020 8:40 AM EDT PATIENT: Ton Contreras : 1980 DATE OF SERVICE: 01/22/2020 CHIEF COMPLAINT: Chief Complaint Patient presents with ? Emesis started with nausea on saturday vomiting starting yesterday ? Diarrhea x3 days ? Headache Subjective HISTORY OF PRESENT ILLNESS: Ton Contreras is a 39-y.o. male. HPI NVD x 3 days. Some sinus congestion too. No OTC meds. No known sick contacts but does work at [employer] Last vomited this AM, last diarrhea last night Also having increased sinus pain and pressure over past few days - no OTC meds used History reviewed. No pertinent past medical history. Family History Problem Relation Age of Onset ? Lung Cancer Mother mets ? Cancer Mother ? No Known Problems Father ? No Known Problems Sister ? No Known Problems Son ? No Known Problems Sister ? No Known Problems Sister ? No Known Problems Son Current Outpatient Medications Medication Sig ? doxycycline (VIBRAMYCIN) 100 MG Oral Tab Take 1 Tab by mouth TWICE DAILY for 10 days. ? ibuprofen (MOTRIN) 600 MG Oral Tab Take 1 Tab by mouth EVERY EIGHT HOURS NEEDED (pain). ? lurasidone HCL (LATUDA) 20 MG Oral Tab Take 3 Tabs by mouth DAILY. ? ondansetron (ZOFRAN ODT) 4 MG Oral TABLET DISPERSIBLE Take 1 Tab by mouth EVERY SIX HOURS ASNEEDED (nausea). No current facility-administered medications for this visit. Allergies Allergen Reactions ? Benadryl Allergy Hives Social History Socioeconomic History ? Marital status: Single Spouse name: Not on file ? Number of children: Not on file ? Years of education: Not on file ? Highest education level: Not on file Occupational History ? Not on file Social Needs ? Financial resource strain: Not on file ? Food insecurity Worry: Not on file Inability: Not on file ? Transportation needs Medical: Not on file Non-medical: Not on file Tobacco Use ? Smoking status: Former Smoker ? Smokeless tobacco: Current User ? Tobacco comment: quit 14 years ago Substance and Sexual Activity ? Alcohol use: Not Currently Comment: 4 beers a month ? Drug use: Yes Types: Marijuana ? Sexual activity: Yes Partners: Female Lifestyle ? Physical activity Days per week: Not on file Minutes per session: Not on file ? Stress: Not on file Relationships ? Social connections Talks on phone: Not on file Gets together: Not on file Attends hinduism service: Not on file Active member of club or organization: Not on file Attends meetings of clubs or organizations: Not on file Relationship status: Not on file ? Intimate partner violence Fear of current or ex partner: Not on file Emotionally abused: Not on file Physically abused: Not on file Forced sexual activity: Not on file Other Topics Concern ? Not on file Social History Narrative 2 children Works at [employer] REVIEW OF SYSTEMS: Review of Systems Constitutional: Positive for malaise/fatigue. Negative for chills and fever. HENT: Positive for congestion and sinus pain. Respiratory: Negative for cough. Gastrointestinal: Positive for abdominal pain, diarrhea, nausea and vomiting. Negative for blood in stool. Musculoskeletal: Positive for myalgias. Neurological: Positive for headaches. Objective PHYSICAL EXAM: VITALS: BP (!) 142/72 | Pulse 62 | Temp 98.2 F (36.8 C) (Tympanic) | Ht 6' 2" (1.88 m) | Wt 198 lb (89.8 kg) | SpO2 95% | BMI 25.42 kg/m Body mass index is 25.42 kg/m. Physical Exam Vitals signs and nursing note reviewed. Constitutional: General: He is not in acute distress. Appearance: Normal appearance. He is ill-appearing. HENT: Head: Normocephalic and atraumatic. Right Ear: Tympanic membrane is retracted. Tympanic membrane is not erythematous. Left Ear: Tympanic membrane is retracted. Tympanic membrane is not erythematous. Nose: Mucosal edema and congestion present. No rhinorrhea. Right Sinus: Maxillary sinus tenderness present. Left Sinus: Maxillary sinus tenderness present. Mouth/Throat: Lips: [place]. Mouth: Mucous membranes are moist. Pharynx: Uvula midline. No oropharyngeal exudate or posterior oropharyngeal erythema. Eyes: Extraocular Movements: Extraocular movements intact. Pupils: Pupils are equal, round, and reactive to light. Neck: Musculoskeletal: Normal range of motion. No neck rigidity. Cardiovascular: Rate and Rhythm: Normal rate and regular rhythm. Pulmonary: Effort: Pulmonary effort is normal. Breath sounds: Normal breath sounds. Abdominal: General: Bowel sounds are increased. There is no distension. Palpations: Abdomen is soft. There is no mass. Tenderness: There is generalized abdominal tenderness. There is no guarding or rebound. Lymphadenopathy: Cervical: No cervical adenopathy. Skin: General: Skin is warm and dry. Capillary Refill: Capillary refill takes less than 2 seconds. Neurological: Mental Status: He is alert and oriented to person, place, and time. Cranial Nerves: Cranial nerves are intact. Psychiatric: Behavior: Behavior is cooperative. ASSESSMENT / IMPRESSION: ICD-9-CM ICD-10-CM 1. Viral gastroenteritis 008.8 A08.4 ondansetron (ZOFRAN ODT) 4 MG Oral TABLET DISPERSIBLE 2. Acute maxillary sinusitis, recurrence not specified 461.0 J01.00 doxycycline (VIBRAMYCIN) 100 MGOral Tab Plan Rest Fluids Steam may help loosen congestion Mucinex thins mucus salt water gargle as needed for sore/scratchy throat Pedialyte , Gator aid or tea with sugar and salt Zofran as needed for nausea, Imodium AD for diarrhea Start Doxycycline when nausea and diarrhea Call if symptoms fail to resolve or worsen Author: PARISH Bansal 01/22/2020 09:06 documented in this encounter Plan of Treatment Health Maintenance Due Date Last Done Comments DTaP/Tdap/Td Vaccines ( - 03/20/2020 Postponed from 1992 Tdap) (Other) DEPRESSION SCREENING 07/14/2020 07/14/2019, 07/14/2019 INFLUENZA VACCINE Completed 07/14/2019 HIV SCREENING Completed 07/18/2019, 01/06/1999 HEPATITIS A IMMUNIZATION Aged Out No longer eligible based SERIES on patient's age to complete this topic HPV IMMUNIZATION SERIES Aged Out No longer [...] is an individualized treatment (depression) goal for Tonstephanie Johnsonens: Displayed above is your goal for a depression screening (PHQ-9) score that would indicate good control of your depression. 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
--- OUTSIDE RECORDS SUMMARY | 2020-02-04 07:10 | XMS REPORT | Summary of Care ---
:1980 Author Organization [facility] Address [address] [address] Care Team Providers Name Role Phone None, [place] Primary Care Provider Unavailable Reason for Visit Reason Comments Establish Care pt here to talk about MRI done on left knee Encounter Details Date Type Department Care Team Description 12/25/2019 Office Visit [facility], Osteoarthritis of left Practice MD Emani knee, unspecified [address] [facility] [place] [address] [place] [address] (Primary Dx) [phone] Allergies Active Allergy Reactions Severity Noted Date Comments Benadryl Allergy Hives 07/14/2019 documented as of this encounter (statuses as of 12/25/2019) Medications Medication Sig Dispensed Refills Start Date End Date Status LATUDA 20 MG Oral TAKE 3 90 Tab 0 11/10/2019 Active TabIndications: TABLETS BY Bipolar 2 disorder, MOUTH EVERY major depressive DAY episode (HCC) ibuprofen (MOTRIN) Take 1 Tab 60 Tab 2 12/25/2019 Active 600 MG Oral Tab by mouth EVERY EIGHT HOURS NEEDED (pain). naproxen (NAPROSYN) Take 1 Tab 20 Tab 0 08/13/2019 Discontinued 500 MG Oral by mouth 0 (Other) TabIndications: TWICE DAILY. Acute left-sided low back pain without sciatica cyclobenzaprine Take 1 Tab 10 Tab 0 08/13/2019 Discontinued (FLEXERIL) 10 MG by mouth 0 (Other) Oral TabIndications: EVERY Acute left-sided low BEDTIME. back pain without sciatica diclofenac Take 1 Tab 60 Tab 0 11/06/2019 Discontinued (VOLTAREN) 75 MG by mouth 0 (Other) Oral Tab TWICE DAILY. ECIndications: Chronic pain of left knee documented as of this encounter (statuses as of 12/25/2019) Active Problems No known active problemsdocumented as [...] Sign Reading Time Taken Comments Blood Pressure 122/70 12/25/2019 3:25 PM EST Pulse 60 12/25/2019 3:25 PM EST Temperature 37.2 12/25/2019 3:25 PM C (98.9 EST F) Respiratory Rate - - Oxygen Saturation 97% 12/25/2019 3:25 PM EST Inhaled Oxygen Concentration - - Weight 90.7 kg (199 lb 14.4 oz) 12/25/2019 3:25 PM EST Height 188 cm (6' 2") 12/25/2019 3:25 PM EST Body Mass Index 25.67 12/25/2019 3:25 PM EST documented in this encounter Patient Instructions Patient InstructionsEmani Elizabeth MD - 12/25/2019 3:00 PM EST1. Take Motrin 600 mg every 8 hour as needed for pain with food 2. Continue PT 3. Follow with ortho- as scheduled documented in this encounter Progress Notes Emani Elizabeth MD - 12/25/2019 3:00 PM EST Patient: Ton Contreras Date of Service: 12/25/2019 Subjective: Ton Contreras is a 39-y.o. male who presents for Chief Complaint Patient presents with ? Establish Care pt here to talk about MRI done on left knee The patient complains of left knee pain for several weeks. Patient reports: History of injury: none Pain: Location: anterior and medial Exacerbating factors: activity Neurological complaints: none Vascular complaints: none Ambulation: mild difficulty Seen ortho-, Dr. Barlow MRI of the L knee done on 11/26/19: Mild degenerative changes in medial meniscus , chondromalacia of the patella, bone marrow edema in lateral tibia Patient was advised on PT. Completed 2 weeks of PT for now. No significant improvement History reviewed. No pertinent past medical history. Outpatient Medications as of 12/25/2019 Medication Sig Dispense Refill ? LATUDA 20 MG Oral Tab TAKE 3 TABLETS BY MOUTH EVERY DAY 90 Tab 0 No current facility-administered medications on file as of 12/25/2019. Allergies Allergen Reactions ? Benadryl Allergy Hives Review of Systems: All remaining review of systems was negative. Objective: BP 122/70 (BP Location: Left arm, Patient Position: Sitting) Pulse 60 Temp 98.9 F (37.2 C) Ht 6' 2" (1.88 m) Wt 199 lb 14.4 oz (90.7 kg) SpO2 97 % BMI 25.67 kg/m2 General appearance: alert, well appearing, and in no distress. A left knee exam was performed. SKIN: intact SWELLING: none WARMTH: no warmth TENDERNESS: mild and maximal at medial joint line ROM: full and limited by pain CREPITUS: no NEUROLOGICAL EXAM: normal VASCULAR EXAM: normal ICD-9-CM ICD-10-CM 1. Osteoarthritis of left knee, unspecified osteoarthritis type 715.96 M17.12 Patient Instructions 1. Take Motrin 600 mg every 8 hour as needed for pain with food 2. Continue PT 3. 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
--- OUTSIDE RECORDS SUMMARY | 2020-02-04 07:10 | XMS REPORT | Continuity of Care Document ---
:1980 External Reference #:[id number] Author Name Maryse Barlow M.D. (transmitted by agent of provider Loretta Sánchez) Address [address] [place] [address] Care Team Providers Name Role Phone Kar Dean D.O. - Family Medicine Care Team Information Smutter Problems Active Problems Provider Date Sprain of wrist and/or hand Rick Richards MD Onset: 07/30/2017 Lesion of ulnar nerve Rick Richards MD Onset: 04/02/2018 Social History Type Date Description Comments Sex Unknown ETOH Use Occasionally consumes alcohol Tobacco Use Start: Unknown End: Patient is a former 13 years no smoking Unknown smoker Smoking Status Reviewed: 12/11/19 Patient is a former 13 years no smoking smoker Exercise Exercises regularly Type/Frequency Allergies, Adverse Reactions, Alerts Active Allergies Reaction Severity Comments Date Benadryl hallucinations Moderate 05/09/2011 Inactive Allergies NKDA 11/01/2016 Medications Active Medications SIG Qnty Indications Ordering Provider Date Meloxicam 1 by mouth every 90tabs M25.562 Maryse Barlow, 11/23/2019 15mg Tablets day M.D. Omeprazole 1 by mouth every 60caps [employer], 08/12/2018 20mg morning on an MD Erin PEREZ empty stomach Ibuprofen prn pain Unknown Latuda everyday Unknown 20mg Tablets Medications Administered in Office Medication SIG Qnty Indications Ordering Provider Date Celestone 3 mg and 3mg Rick Richards MD 04/01/2019 Injection Immunizations Description No Information Available Vital Signs Date Vital Result Comment 12/11/2019 2:33pm Height 74 inches 6'2" Weight 210.00 lb Heart Rate 60 /min BP Systolic Sitting 118 mmHg BP Diastolic Sitting 62 mmHg Respiratory Rate 16 /min Pain Level 3 O2 % BldC Oximetry 98 % BMI (Body Mass Index) 27.0 kg/m2 11/23/2019 10:38am Height 74 inches 6'2" Weight 210.00 lb Heart Rate 72 /min BP Systolic 106 mmHg BP Diastolic 68 mmHg Respiratory Rate 12 /min Body Temperature 98.5 F Pain Level 3 BMI (Body Mass Index) 27.0 kg/m2 Results Description No Information Available Procedures Date Code Description Status 12/11/2019 06818 Inject/Drain Joint/Bursa Major W/O US Completed Medical Devices Description No Information Available Encounters Type Date Location Provider Dx Diagnosis Office Visit 11/23/2019 [facility] Maryse Barlow, M25.562 Pain in left knee 10:30a at [facility] M25.462 Effusion, left knee M23.8x2 Other internal derangements of left knee Assessments Date Code Description Provider 12/11/2019 M25.562 Pain in left knee Maryse Barlow M.D. 12/11/2019 M25.462 Effusion, left knee Maryse Barlow M.D. 12/11/2019 M23.8x2 Other internal derangements of left knee Maryse Barlow M.D. 11/23/2019 M25.562 Pain in left knee Maryse Barlow M.D. 11/23/2019 M25.462 Effusion, left knee Maryse Barlow M.D. 11/23/2019 M23.8x2 Other internal derangements of left knee Maryse Barlow M.D. Plan of Treatment Future Appointment(s):01/11/2020 3:15 pm - Maryse Barlow M.D. at [facility] at [place]/11/2019 - Maryse Barlow M.D.M25.562 Pain in left kneeNew Therapy:Physical TherapyFollow up:Follow up: 4 [id number] Effusion, left kneeM23.8x2 Other internal derangements of left knee Functional Status Description No Information Available Mental Status Description No Information Available Referrals Description No Information Available
[2020-02-04 07:35] VITALS: BP 138/73
[2020-02-04] MEDS ORDERED: Rabies VIRUS VACCINE (RabAvert)* 2.5 UNITS VIAL IM ONE (07:53)
[2020-02-04] MEDS ORDERED: Tetan/Diph/Pertus SYR(Tdap)* 0.5 ML SYR(BOOSTRIX) use SYR contains LATEX IM ONE (07:53)
[2020-02-04] MEDS ORDERED: Rabies Immune Globulin/PF 1ML* 1 ML/300 UNITS VIAL IM ONE (07:53)
--- NOTE | 2020-02-04 08:40 | UC ---
Bite Injury/Animal HPI - HPI Summary HPI Summary: The patient is a 39-year-old male who was bitten on the dorsum of his left hand yesterday by a cat who was trying to remove from his neighbors porch. In addition to the Bite he sustained numerous scratches to both hands. His tetanus is not up-to-date. He is not on prednisone. He denies any pain. He has full range of motion of his left hand without any discomfort. He has been in contact with the health department and he was instructed to come here for RIG and rabies immunization. - History of Current Complaint Chief Complaint: UCBiteInjury Stated Complaint: CAT BITE Time Seen by Provider: 02/04/20 07:39 Hx Obtained From: Patient Severity Currently: None Severity Initially: Mild Pain Intensity: 0 Pain Scale Used: 0-10 Numeric Onset/Duration: Sudden Onset Type of Bite: Animal - cat-feral Character: Puncture Aggravating Factor(s): Nothing Alleviating Factor(s): Nothing Associated Signs And Symptoms: Negative: Fever, Erythema, Drainage, Swelling, Lymphadenopathy, Numbness/Tingling, Limited ROM Animal Available for Observation: No Body - Head: 1 - series of PWs 2 - scratch 3 - scratch 4 - assorred small and superfical scratches - Allergies/Home Medications Allergies/Adverse Reactions: Allergies Allergy/AdvReac Type Severity Reaction Status Date / Time diphenhydramine Allergy Hives Verified 02/04/20 07:27 [From Ellie] Home Medications: Home Medications Lurasidone(*) [Latuda] 40 mg PO DAILY 07/22/19 [History Confirmed 02/04/20] Amoxicillin/Clavulanate TAB* [Augmentin TAB 875*] 875 mg PO BID #10 tab [Rx] Ibuprofen 600 mg PO ONCE PRN 02/04/20 [History Confirmed 02/04/20] Meloxicam [Qmiiz Odt] 1 tab PO DAILY 02/04/20 [History Confirmed 02/04/20] PMH/Surg Hx/FS Hx/Imm Hx Previously Healthy: Yes - Surgical History Surgical History: Yes Surgery Procedure, Year, and Place: ORAL SURGERY had wisdom teeth and a couple others removed. Rt HAND 11/2017 & 04/28 - WORK INJURY - REPAIR TENDONS & BONE REMOVED - NO METAL - [facility] - Family History Known Family History: Negative: Cardiac Disease, Hypertension, Diabetes - Social History Alcohol Use: Occasionally Alcohol Amount: 1 per month Substance Use Type: Marijuana Substance Use Comment - Amount & Last Used: occassionally Smoking Status (MU): Former Smoker Amount Used/How Often: smoked for 8 years 1.5ppd When Did the Patient Quit Smoking/Using Tobacco: 13 years ago - Immunization History Most Recent Tetanus Shot: 2011 Review of Systems All Other Systems Reviewed And Are Negative: Yes Constitutional: Positive: Negative Skin: Positive: Other - see HPI Eyes: Positive: Negative ENT: Positive: Negative Respiratory: Positive: Negative Cardiovascular: Positive: Negative Gastrointestinal: Positive: Negative Genitourinary: Positive: Negative Motor: Positive: Negative Neurovascular: Positive: Negative Musculoskeletal: Positive: Negative Neurological/Mental Status: Positive: Negative Psychological: Positive: Negative Physical Exam Triage Information Reviewed: Yes Appearance: Well-Appearing, No Pain Distress, Well-Nourished Vital Signs: Initial Vital Signs Temp 97.1 F 02/04/20 07:20 Pulse 73 02/04/20 07:20 Resp 18 02/04/20 07:20 BP 138/73 02/04/20 07:20 Pulse Ox 99 02/04/20 07:20 Vital Signs Reviewed: Yes Eyes: Positive: Conjunctiva Clear ENT: Positive: Hearing grossly normal, Uvula midline. Negative: Nasal congestion, Nasal drainage, Tonsillar swelling, Tonsillar exudate, Trismus, Muffled voice, Hoarse voice Neck: Positive: Supple, Nontender, No Lymphadenopathy Respiratory: Positive: Lungs clear, Normal breath sounds, No respiratory distress, No accessory muscle use Cardiovascular: Positive: RRR, No Murmur Musculoskeletal Exam: Normal Neurological: Positive: Alert Psychological Exam: Normal Skin Exam: Other - see image Bite Injury Course/Dx - Differential Dx/Diagnosis Provider Diagnosis: Cat bite of left hand, Cat scratch, Elevated BP without diagnosis of hypertension Discharge ED - Sign-Out/Discharge Documenting (check all that apply): Patient Departure All imaging exams completed and their final reports reviewed: No Studies - Discharge Plan Condition: Stable Disposition: HOME Prescriptions: Amoxicillin/Clavulanate TAB* [Augmentin TAB 875*] 875 mg PO BID #10 tab Patient Education Materials: Animal Bite (ED) Referrals: Kar Dean, [Primary Care Provider] - If Needed (I suggest BP recheck in 2-6 mos. A little high here) Additional Instructions: follow up for repeat rabies shots as directed by [facility] Cat bites are at risk of infection warm soap soaks of left hand twice daily until better RECHECK YURIDIA for concerns of infect fever redness increased pain pain with moving fingers red streaks up arm - Billing Disposition and Condition Condition: STABLE Disposition: Home
== END 2020-02-04 08:55 | disposition home or self-care (01) ==
LOC: UCEAST 07:02
DX: S61.432A Puncture wound without foreign body of left hand, initial encounter (principal); W55.01XA Bitten by cat, initial encounter; S60.512A Abrasion of left hand, initial encounter; S60.511A Abrasion of right hand, initial encounter; W55.03XA Scratched by cat, initial encounter; Y93.89 Activity, other specified; Y92.008 Other place in unspecified non-institutional (private) residence as the place of occurrence of the external cause; Z23 Encounter for immunization; R03.0 Elevated blood-pressure reading, without diagnosis of hypertension; Z88.8 Allergy status to other drugs, medicaments and biological substances; Z87.891 Personal history of nicotine dependence
CPT/HCPCS: 90375; 90471; 90472; 90675; 90715; 96372; 99212; G0463

== ENCOUNTER 2020-02-07 07:04 | Emergency (ER) | payer OTHER ==
[2020-02-07 07:16] VITALS: BP 120/74
[2020-02-07] MEDS ORDERED: Rabies VIRUS VACCINE (RabAvert)* 2.5 UNITS VIAL IM ONE (07:21)
--- NOTE | 2020-02-07 07:22 | UC ---
HPI Wound/Suture Re-check - HPI Summary HPI Summary: The patient is a 39-year-old male who is here for his scheduled 3 day follow-up of the cat bite to the dorsum of his left hand. He was started on R rabies protocol because the cat was a stray. He has been tolerating his Augmentin well. He states that his hand has not become swollen red or painful. He is here for his day #3 rabies vaccination. He has had no fever. He denies any URI symptoms. - History Of Current Complaint Chief Complaint: EDAnimalBite Stated Complaint: RABIES EXPOSURE Time Seen by Provider: 02/07/20 07:20 Hx Obtained From: Patient Pain Intensity: 0 Pain Scale Used: 0-10 Numeric - Allergies/Home Medications Allergies/Adverse Reactions: Allergies Allergy/AdvReac Type Severity Reaction Status Date / Time diphenhydramine Allergy Hives Verified 02/07/20 07:16 [From Benadryl] Home Medications: Home Medications Lurasidone(*) [Latuda] 40 mg PO DAILY 07/22/19 [History Confirmed 02/04/20] Amoxicillin/Clavulanate TAB* [Augmentin TAB 875*] 875 mg PO BID #10 tab [Rx] Ibuprofen 600 mg PO ONCE PRN 02/04/20 [History Confirmed 02/04/20] Meloxicam [Qmiiz Odt] 1 tab PO DAILY 02/04/20 [History Confirmed 02/04/20] PMH/Surg Hx/FS Hx/Imm Hx Previously Healthy: Yes Psychological History: Bipolar Disorder - Surgical History Surgical History: Yes Surgery Procedure, Year, and Place: ORAL SURGERY had wisdom teeth and a couple others removed. Rt HAND 11/2017 & 04/28 - WORK INJURY - REPAIR TENDONS & BONE REMOV[place] - [place] [facility] [place] Family History Known Family History: Negative: Cardiac Disease, Hypertension, Diabetes - Social History Alcohol Use: Occasionally Alcohol Amount: 1 per month Substance Use Type: Marijuana Substance Use Comment - Amount & Last Used: occassionally Smoking Status (MU): Former Smoker Amount Used/How Often: smoked for 8 years 1.5ppd When Did the Patient Quit Smoking/Using Tobacco: 13 years ago - Immunization History Most Recent Tetanus Shot: 2011 Review of Systems All Other Systems Reviewed And Are Negative: Yes Constitutional: Positive: Negative Skin: Positive: Negative Eyes: Positive: Negative ENT: Positive: Negative Respiratory: Positive: Negative Cardiovascular: Positive: Negative Gastrointestinal: Positive: Negative Genitourinary: Positive: Negative Motor: Positive: Negative Neurovascular: Positive: Negative Musculoskeletal: Positive: Negative Neurological/Mental Status: Positive: Negative Psychological: Positive: Negative Physical Exam Triage Information Reviewed: Yes Appearance: Well-Appearing, No Pain Distress, Well-Nourished Vital Signs: Initial Vital Signs Temp 98 F 02/07/20 07:13 Pulse 79 02/07/20 07:13 Resp 16 02/07/20 07:13 BP 120/74 02/07/20 07:13 Pulse Ox 98 02/07/20 07:13 Vital Signs Reviewed: Yes Eyes: Positive: Conjunctiva Clear ENT: Positive: Hearing grossly normal, Uvula midline. Negative: Nasal congestion, Nasal drainage, Trismus, Muffled voice Dental Exam: Normal Neck: Positive: Supple, Nontender, No Lymphadenopathy Respiratory: Positive: Lungs clear, Normal breath sounds, No respiratory distress, No accessory muscle use Cardiovascular: Positive: RRR, No Murmur Abdomen Description: Positive: Nontender Bowel Sounds: Positive: Present Musculoskeletal: Positive: ROM Intact, No Edema Neurological: Positive: Alert Psychological Exam: Normal Skin Exam: Other - healing PWs and scratches Course/Dx - Diagnosis Provider Diagnosis: Cat bite Discharge ED - Sign-Out/Discharge Documenting (check all that apply): Patient Departure All imaging exams completed and their final reports reviewed: No Studies - Discharge Plan Condition: Stable Disposition: HOME Patient Education Materials: Rabies Vaccine (ED) Referrals: Kar Dean DO [Primary Care Provider] - Additional Instructions: recheck as planned - Billing Disposition and Condition Condition: STABLE Disposition: Home
== END 2020-02-07 07:40 | disposition home or self-care (01) ==
LOC: UCEAST 07:04
DX: S61.432D Puncture wound without foreign body of left hand, subsequent encounter (principal); W55.01XD Bitten by cat, subsequent encounter; Z20.3 Contact with and (suspected) exposure to rabies; Z23 Encounter for immunization; Z88.8 Allergy status to other drugs, medicaments and biological substances; Z87.891 Personal history of nicotine dependence
CPT/HCPCS: 90471; 90675; 99211; G0463

== ENCOUNTER 2021-04-25 20:32 | Inpatient (IN) ==
[2021-04-25 21:28] LABS: ABS Basophils 0.1 10^3/ul (0-0.2); ABS Eosinophils 0.2 10^3/ul (0-0.6); ABS Monocytes 0.4 10^3/ul (0-0.8); Eosinophil % 2.3 %; Hematocrit 44 % (42-52); Hemoglobin 15.4 g/dL (14.0-18.0); Lymphocyte % 30.7 %; Mean Corpuscular HGB Conc 35 g/dL (31-36); Mean Corpuscular Hemoglobin 32 pg (27-31); Mean Corpuscular Volume 92 fL (80-94); Mean Platelet Volume 9.1 fL (7.4-10.4); Nucleated Red Blood Cells % 0.1; Platelet Count 229 10^3/uL (150-450); Red Blood Count 4.82 10^6 /uL (4.18-5.48); Red Cell Distribution Width 13 % (10-15); White Blood Count 6.7 10^3/uL (3.5-10.8)
[2021-04-25 21:45] LABS: ALT 16 U/L (7-52); AST 17 U/L (13-39); Acetaminophen < 15 mcg/mL; Albumin 4.9 g/dL (3.2-5.2); Albumin/Globulin Ratio 1.8 (1-3); Alcohol, S < 10 mg/dL (<10); Alkaline Phosphatase 60 U/L (35-149); Anion Gap 9 mmol/L (2-11); Blood Urea Nitrogen 10 mg/dL (6-24); CO2 Carbon Dioxide 24 mmol/L (22-32); Calcium 9.7 mg/dL (8.6-10.3); Chloride 105 mmol/L (101-111); EGFR African American 105.5 (>60); EGFR Non-African American 87.2 (>60); Globulin 2.8 g/dL (2-4); Glucose 129 mg/dL (70-100); Potassium 3.6 mmol/L (3.5-5.0); Salicylate < 2.50 mg/dL (<30); Sodium 138 mmol/L (135-145); Total Protein 7.7 g/dL (6.4-8.9); Urine Benzodiazepine Screen None Detected (None Detect); Urine Cannabinoids Screen Presumptive Positive (None Detect); Urine Opiates Screen None Detected (None Detect)
[2021-04-25 22:00] LABS: TSH Ultra Thyroid Stim Horm 1.07 mcIU/mL (0.34-5.60)
[2021-04-26] MEDS ORDERED: Nicotine GUM 2MG FRUIT FLAVOR PO ONE (01:32)
[2021-04-26] MEDS ORDERED: Al Hydrox/Mg Hydrox/Simet LIQ 30 ML UDC PO PRN (02:15)
[2021-04-26] MEDS: Nicotine GUM 2MG FRUIT FLAVOR PO PRN ×3 (07:06→16:30)
[2021-04-26 08:41] LABS: HDL Cholesterol 41.1 mg/dL
[2021-04-26] MEDS: Vitamin THERAPEUTIC TAB PO SCH (09:08)
[2021-04-26] MEDS: Nicotine PATCH 14 MG/24 HR PATCH TRANSDERM SCH (09:08)
[2021-04-26 11:39] LABS: Free T3 3.4 pg/mL (2.5-3.9)
[2021-04-26 11:43] LABS: Free T4 1.39 ng/dL (0.61-1.12)
[2021-04-27] MEDS: Nicotine GUM 2MG FRUIT FLAVOR PO PRN ×4 (04:57→15:51)
[2021-04-27] MEDS: Nicotine PATCH 14 MG/24 HR PATCH TRANSDERM SCH (07:54)
[2021-04-27] MEDS: Vitamin THERAPEUTIC TAB PO SCH (07:55)
[2021-04-28] MEDS: Nicotine GUM 2MG FRUIT FLAVOR PO PRN ×4 (05:05→17:13)
[2021-04-28] MEDS: Nicotine PATCH 14 MG/24 HR PATCH TRANSDERM SCH (08:35)
[2021-04-28] MEDS: Vitamin THERAPEUTIC TAB PO SCH (08:35)
[2021-04-29] MEDS: Nicotine GUM 2MG FRUIT FLAVOR PO PRN ×4 (05:34→17:09)
[2021-04-29] MEDS: Nicotine PATCH 14 MG/24 HR PATCH TRANSDERM SCH (09:26)
[2021-04-29] MEDS: Vitamin THERAPEUTIC TAB PO SCH (10:02)
[2021-04-30] MEDS: Nicotine GUM 2MG FRUIT FLAVOR PO PRN ×5 (07:01→19:45)
[2021-04-30] MEDS: Nicotine PATCH 14 MG/24 HR PATCH TRANSDERM SCH (07:14)
[2021-04-30] MEDS: Vitamin THERAPEUTIC TAB PO SCH (08:14)
[2021-05-01] MEDS: Nicotine GUM 2MG FRUIT FLAVOR PO PRN ×3 (03:28→10:58)
[2021-05-01] MEDS: Vitamin THERAPEUTIC TAB PO SCH (08:23)
[2021-05-01] MEDS: Nicotine PATCH 14 MG/24 HR PATCH TRANSDERM SCH (08:25)
[2021-05-01 09:16] VITALS: BP 136/79
== END 2021-05-01 13:00 | disposition home or self-care (01) | DRG 885 ==
LOC: ED 20:32 → BSU 23:30
PROVIDERS: ADMIT Psychiatry & Neurology Psychiatry; ATTEND Psychiatry & Neurology Psychiatry